=== PATIENT | male | born 1980 | race American Indian/Alaskan Native ===

== ENCOUNTER 2018-12-26 16:24 | Emergency (ER) | payer SELFPAY ==
[2018-12-26] MEDS ORDERED: ASPIRIN PO ONE (17:06)
[2018-12-26 17:08] VITALS: BP 123/83
--- NOTE | 2018-12-26 17:09 | Event Note ---
ED Screening Note Date of service: 12/26/18 Time: 17:04 ED Screening Note: This is a 38 y.o. M. that presents to the ER with chest pain for 4 days. Reports pain as tightness that is non-radiating. This initial assessment/diagnostic orders/clinical plan/treatment(s) is/are subject to change based on patients health status, clinical progression and re- assessment by fellow clinical providers in the ED. Further treatment and workup at subsequent clinical providers discretion. Patient/guardian urged not to elope from the ED as their condition may be serious if not clinically assessed and managed. Initial orders include: Labs, EKG, & CXR
--- NOTE | 2018-12-26 18:07 | XRay Report ---
CHEST 2 VIEWS INDICATION / CLINICAL INFORMATION: Chest Pain. COMPARISON: None available. FINDINGS: SUPPORT DEVICES: None. HEART / MEDIASTINUM: The heart size and pulmonary vasculature are normal. The aorta is normal in [place]ung pau. LUNGS / PLEURA: No significant pulmonary or pleural abnormality. No pneumothorax. ADDITIONAL FINDINGS: No significant additional findings. IMPRESSION: No acute findings. Signer Name: Jorge Hernandez MD Signed: 12/26/2018 6:02 PM Workstation Name: [id number]
[2018-12-26 19:23] LABS: BUN/Creatinine Ratio 11; Blood Urea Nitrogen 14 mg/dL (9-20); Calcium 9.9 mg/dL (8.4-10.2); Hemolysis Index 4
[2018-12-26 19:56] LABS: Basophils # (Auto) 0.1 K/mm3 (0.0-0.1); Basophils % (Auto) 0.8 % (0.0-1.8); Eosinophils % (Auto) 0.4 % (0.0-4.3); Hematocrit 41.1 % (35.5-45.6); Hemoglobin 12.9 gm/dl (11.8-15.2); Lymphocytes # (Auto) 1.4 K/mm3 (1.2-5.4); Lymphocytes % (Auto) 18.2 % (13.4-35.0); Mean Corpuscular HGB Conc 31 % (32-34); Mean Corpuscular Volume 77 fl (84-94); Monocytes # (Auto) 0.5 K/mm3 (0.0-0.8); Monocytes % (Auto) 6.9 % (0.0-7.3); Platelet Count 255 K/mm3 (140-440); Red Blood Count 5.35 M/mm3 (3.65-5.03); Red Cell Distribution Width 13.4 % (13.2-15.2)
[2018-12-26] MEDS ORDERED: MORPHINE IV ONE (20:13)
[2018-12-26] MEDS ORDERED: ZOFRAN IV ONE (20:13)
[2018-12-26] MEDS ORDERED: NACL 0.9% 1000 ML 1,000 ML IV ONE (20:13)
--- NOTE | 2018-12-26 22:11 | Emergency Department Report ---
ED Chest Pain HPI - General Chief Complaint: Chest Pain Stated Complaint: CHEST TIGHTNESS/SINUS Time Seen by Provider: 12/26/18 17:04 Source: patient Mode of arrival: Ambulatory Limitations: No Limitations - History of Present Illness Initial Comments: Patient is a 38-year-old -[place] male with no past medical history except tobacco smoking who presents to the ED with complaint of acute onset persistent left-sided chest pain which he describes a pressure, tightness and pleuritic with inspiration for the last 5 days. Patient also complains of shortness of breath, nausea and vomiting. Patient denies dizziness, headache, fever, chills, cough, diarrhea, abdominal pain, back pain, sore throat, change in vision or palpitations. MD Complaint: chest pain, other (pleuritic chest pain) -: Sudden, days(s) (5) Onset: during rest Pain Location: substernal Pain Radiation: none Severity: severe Severity scale (0 -10): 7 Quality: aching, sharp, pressure Consistency: intermittent Improves With: nothing Worsens With: inspiration re: nausea, vomting Other Symptoms: cough. denies: fever, syncope, rash, acid taste in mouth, leg swelling, palpitations, burping Treatments Prior to Arrival: none Aspirin use within the Past 7 Days: (0) No - Related Data On Oral Contraceptives: No Previous Rx's Medication Instructions Recorded Last Taken Type Cyclobenzaprine [Flexeril] 10 mg PO Q8H PRN #12 tablet 12/26/18 Unknown Rx Naproxen 500 mg PO Q12H PRN #20 tablet 12/26/18 Unknown Rx Ondansetron [Zofran Odt] 4 mg PO Q6HR PRN #20 tab.rapdis 12/26/18 Unknown Rx Allergies Allergy/AdvReac Type Severity Reaction Status Date / Time No Known Allergies Allergy Unverified 12/26/18 16:27 Heart Score - HEART Score History: Slightly suspicious EKG: Normal Age: < 45 Risk factors: 1-2 risk factors Troponin: < normal limit HEART Score: 1 - Critical Actions Critical Actions: 0-3 pts:0.9-1.7%risk of adverse cardiac event.Candidate for discharge ED Review of Systems ROS: Stated complaint: CHEST TIGHTNESS/SINUS Other details as noted in HPI Constitutional: denies: chills, fever Eyes: denies: eye pain, eye discharge, vision change ENT: denies: ear pain, throat pain Respiratory: shortness of breath. denies: cough, wheezing Cardiovascular: chest pain. denies: palpitations Endocrine: no symptoms reported Gastrointestinal: denies: abdominal pain, nausea, diarrhea Genitourinary: denies: urgency, dysuria Musculoskeletal: denies: back pain, joint swelling, arthralgia Skin: denies: rash, lesions Neurological: denies: headache, weakness, paresthesias Psychiatric: denies: anxiety, depression Hematological/Lymphatic: denies: easy bleeding, easy bruising ED Past Medical Hx - Past Medical History Previous Medical History?: No - Surgical History Past Surgical History?: No - Social History Smoking Status: Current Every Day Smoker Substance Use Type: Alcohol, Marijuana - Medications Home Medications: Home Medications Medication Instructions Recorded Confirmed Last Taken Type Cyclobenzaprine [Flexeril] 10 mg PO Q8H PRN #12 tablet 12/26/18 Unknown Rx Naproxen 500 mg PO Q12H PRN #20 tablet 12/26/18 Unknown Rx Ondansetron [Zofran Odt] 4 mg PO Q6HR PRN #20 tab.rapdis 12/26/18 Unknown Rx ED Physical Exam - General Limitations: No Limitations General appearance: alert, in no apparent distress - Head Head exam: Present: atraumatic, normocephalic, normal inspection - Eye Eye exam: Present: normal appearance, PERRL, EOMI Pupils: Present: normal accommodation - ENT ENT exam: Present: normal exam, normal orophraynx, mucous membranes moist, TM's normal bilaterally, normal external ear exam - Neck Neck exam: Present: normal inspection, full ROM - Respiratory Respiratory exam: Present: normal lung sounds bilaterally. Absent: respiratory distress, wheezes, rales, rhonchi, chest wall tenderness, accessory muscle use, decreased breath sounds, prolonged expiratory - Cardiovascular Cardiovascular Exam: Present: regular rate, normal rhythm, normal heart sounds. Absent: systolic murmur, diastolic murmur, rubs, gallop - GI/Abdominal GI/Abdominal exam: Present: soft, normal bowel sounds. Absent: tenderness, guarding, rebound, hyperactive bowel sounds, hypoactive bowel sounds, organomegaly - Rectal Rectal exam: Present: deferred - Extremities Exam Extremities exam: Present: normal inspection, full ROM, normal capillary refill - Back Exam Back exam: Present: normal inspection, full ROM. Absent: tenderness, muscle spasm, paraspinal tenderness, vertebral tenderness - Neurological Exam Neurological exam: Present: alert, oriented X3, CN II-XII intact, normal gait, reflexes normal - Psychiatric Psychiatric exam: Present: normal affect, normal mood - Skin Skin exam: Present: warm, dry, intact, normal color. Absent: rash ED Course Vital Signs 12/26/18 12/26/18 17:06 20:30 Temperature 97.9 F Pulse Rate 56 L Respiratory 20 15 Rate Blood Pressure 123/83 O2 Sat by Pulse 97 Oximetry - Reevaluation(s) Reevaluation #1: 12/26/18 22:11 This is a 38-year-old male who presented to the ED with chest pain that he describes as pressure for 5 days with nausea and vomiting and shortness of br eath. In the ED, patient is alert and oriented 3 and is not in distress. EKG shows sinus bradycardia with ventricular rate of 49 bpm, and no ST or T-wave abnormalities. Lab test results were reviewed and are all nonactionable including initial troponin and repeat troponin levels as well as d-dimer levels. Chest x-ray shows no acute cardiopulmonary abnormalities or pneumonitis. Patient was treated for pain in the ED and on reevaluation, patient's pain is well controlled with medications. Patient's heart score is 1, he is PERC negative, also negative on well's criteria, POWER score is 1. Acute this time the patient's symptoms are unlikely due to be acute coronary syndrome based on the fact that all the lab test results are nonactionable and the patient's heart score is only 1. Patient was discharged home on pain medications and advised to follow-up with [facility], to Dr. Steele for outpatient stress test. Patient was advised to return to the ED immediately if symptoms get worse. POWER score - Power Score Age > 65: (0) No Aspirin use within the Past 7 Days: (0) No 3 or more CAD Risk Factors: (0) No 2 or more Angina events in past 24 hrs: (1) Yes Known CAD with more than 50% Stenosis: (0) No Elevated Cardiac Markers: (0) No ST Deviation Greater than 0.5mm: (0) No POWER Score: 1 ED Medical Decision Making - Lab Data Result diagrams: 12/26/18 18:53 12/26/18 18:53 - Radiology Data Radiology results: report reviewed, image reviewed Chest x-ray shows no acute cardiopulmonary abnormalities or pneumonitis. - Medical Decision Making This is a 38-year-old male who presented to the ED with chest pain that he describes as pressure for 5 days with nausea and vomiting and shortness of breath. In the ED, patient is alert and oriented 3 and is not in distress. EKG shows sinus bradycardia with ventricular rate of 49 bpm, and no ST or T-wave abnormalities. Lab test results were reviewed and are all nonactionable including initial troponin and repeat troponin levels as well as d-dimer levels. Chest x-ray shows no acute cardiopulmonary abnormalities or pneumonitis. Patient was treated for pain in the ED and on reevaluation, patient's pain is well controlled with medications. Patient's heart score is 1, he is PERC negative, also negative on well's criteria, POWER score is 1. Acute this time the patient's symptoms are unlikely due to be acute coronary syndrome based on t he fact that all the lab test results are nonactionable and the patient's heart score is only 1. Patient was discharged home on pain medications and advised to follow-up with [facility], to Dr. Steele for outpatient stress test. Patient was advised to return to the ED immediately if symptoms get worse. - Differential Diagnosis ACS, PE, Pneumonia, Costochondritis, chest wall muscle strain Critical care attestation.: If time is entered above; I have spent that time in minutes in the direct care of this critically ill patient, excluding procedure time. ED Disposition Clinical Impression: Chest pain in adult, Nausea and vomiting in adult Muscle strain of chest wall Qualifiers: Encounter type: initial encounter Qualified Code(s): S29.011A - Strain of muscle and tendon of front wall of thorax, initial encounter Disposition: -01 TO HOME OR SELFCARE Is pt being admited?: No Does the pt Need Aspirin: No Condition: Stable Instructions: Chest Pain (ED), Costochondritis (ED), Muscle Strain (ED), Acute Nausea and Vomiting (ED) Additional Instructions: Take medication with food, drink plenty of fluids and follow-up with your [facility], Dr. Steele for further evaluation in the next 24-48 hours. Return to the ED immediately if symptoms get worse. Prescriptions: Cyclobenzaprine [Flexeril] 10 mg PO Q8H PRN #12 tablet PRN Reason: Muscle Spasm Naproxen 500 mg PO Q12H PRN #20 tablet PRN Reason: Pain , Severe (7-10) Ondansetron [Zofran Odt] 4 mg PO Q6HR PRN #20 tab.rapdis PRN Reason: Nausea Referrals: ZACH STEELE MD [Staff Physician] - 3-5 Days Time of Disposition: 22:17 Print Language: ERITREAN
== END 2018-12-26 22:38 | disposition home or self-care (01) ==
LOC: ED 16:24
DX: S29.011A Strain of muscle and tendon of front wall of thorax, initial encounter (principal); R11.2 Nausea with vomiting, unspecified; F17.200 Nicotine dependence, unspecified, uncomplicated; F12.10 Cannabis abuse, uncomplicated; X58.XXXA Exposure to other specified factors, initial encounter; Y93.89 Activity, other specified; Y92.89 Other specified places as the place of occurrence of the external cause; Y99.8 Other external cause status
CPT/HCPCS: 36415; 71046; 80048; 82550; 83880; 84484; 85025; 85379; 93005; 93010; 96361; 96374; 96375; 99284; J2270; J2405; J7030